=== PATIENT | female | born 1935 | race Caucasian/White ===

== ENCOUNTER 2017-05-22 18:40 | Emergency (ER) | payer MEDICARE, OTHER ==
--- NOTE | 2017-05-22 19:47 | CT REPORT ---
HISTORY: Injury. COMPARISON: None. TECHNIQUE: Unenhanced axial CT of the head. Dose reduction technique was utilized. 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 The london-white differentiation appears preserved with no evidence of acute infarct. There i s no evidence of acute cranial hemorrhage. There is no mass lesion or midline shift. The bony calvar ia appears intact. The visualized orbits appear unremarkable. The visualized paranasal sinuses and mastoid air cells appear clear. There is moderate atherosclerosis involving the cavernous internal ca rotid and mild atherosclerosis involving the distal vertebral arteries. IMPRESSION: 1. No acute intracranial abnormality. 2. Mild age-related atrophy. Final Electronic Signature: This report was electronically signed by Leodan Rawls MD on 05/22/2017 7 :45 PM. aliya /
--- NOTE | 2017-05-22 20:04 | RADIOLOGY REPORT ---
HISTORY: Injury. COMPARISON: None. TECHNIQUE: Three views left hand. FINDINGS: There is no evidence of acute fracture or dislocation. There is mild osteoarthritis involving the in terphalangeal joints. There is mild degenerative arthritis involving the first carpal metacarpal join t and between the distal scaphoid and trapezium and trapezoid. There is a normal variant ulna positiv e. There is diffuse osteopenia. The soft tissues appear unremarkable. IMPRESSION: 1. No fracture or dislocation. 2. Mild osteoarthritis interphalangeal joints. 3. Mild degenerative arthritis first carpal metacarpal joint and between the distal scaphoid and tra pezium and trapezoid. 4. Osteopenia. Final Electronic Signature: This report was electronically signed by Leodan Rawls MD on 05/22/2017 8 :02 PM. aliya /
--- NOTE | 2017-05-22 20:09 | RADIOLOGY REPORT ---
HISTORY: Injury. COMPARISON: None. TECHNIQUE: AP, lateral, and oblique views left knee. FINDINGS: There is no evidence of fracture. The joint spaces are preserved. There are tiny spurs along the supe rior and inferior poles of the patella. There is mild osteopenia. There is mild soft tissue swelling anterior to the knee. There is no significant suprapatellar effusion.. IMPRESSION: 1. No acute fracture. 2. Mild soft tissue swelling anterior to the knee. Final Electronic Signature: This report was electronically signed by Leodan Rawls MD on 05/22/2017 8 :07 PM. aliya /
--- NOTE | 2017-05-22 20:30 | ER NURSING DOCUMENTATION ---
Nurse's Notes [facility] Name:Katie Tse Age:81 yrs Sex:Female :1935 Arrival Date:05/22/2017 Time:18:40 Bed1 Private MD: Diagnosis:Knee Contusion;Finger Sprain;Head Injury;Facial Laceration Presentation: 05/22 18:48 Acuity: SHAN 3 tg 18:53 Presenting complaint: Patient states: mechanical fall forward, hitting bridge of nose, sj left cheek, left hand knuckles, left knee on pavement. Transition of care: Home. Notified ED Physician of patient's arrival and CC Dr. Benson notified. 18:53 Acuity: SHAN 4 sj 18:53 Method Of Arrival: Private Vehicle sj Triage Assessment: 19:00 General: Appears comfortable, Behavior is cooperative, pleasant. Pain: Complains of sj pain in left knee and bridge of nose. Neuro: Level of Consciousness is awake, alert, Oriented to person, place, time, event. Cardiovascular: Capillary refill < 3 seconds. Respiratory: Airway is patent Trachea midline Respiratory effort is even, unlabored, Respiratory pattern is regular, symmetrical. Musculoskeletal: Circulation, motion, and sensation intact Capillary refill < 3 seconds Range of motion limited in left knee Swelling present in left knee and left hand 4th & 5th PIP joints. Injury Description: Laceration sustained to bridge of nose is clean, superficial, 0.5 to 2.5 cm long, not bleeding. Historical: - Allergies: Succinylcholine; - Home Meds: 1. Aspirin Oral 2. Lasix Oral 3. Janumet oral 4. Plavix Oral 5. Metoprolol Tartrate Oral 6. Crestor oral 7. Isosorbide Mononitrate Oral 8. losartan oral 9. Norvasc Oral 10. Lexapro Oral 11. Glimepiride Oral - PMHx: Diabetes - NIDDM; Hypertension; CAD; - PSHx: pancreatic cyst removal; right ankle surgery x2; D & C; - Tetanus: < 10 years. - Ebola Screening: : Patient negative for fever greater than or equal to 101.5 degrees Fahrenheit, and additional compatible Ebola Virus Disease symptoms. Patient denies exposure to infectious person. Patient denies travel to an Ebola-affected area in the 21 days before illness onset. No symptoms or risks identified at this time. . - Immunization history: Pneumococcal vaccine is up to date, Flu Vaccine < 1 year. - Social history: Smoking status: Patient states was never smoker of tobacco. Patient uses alcohol on a daily basis. Patient/guardian denies using marijuana. Screenin:07 Infectious Disease Risk None. Abuse screen: Denies threats or abuse. Denies injuries sj from another. Nutritional screening: No deficits noted. Assessment: 19:07 See Triage Assessment done by same RN. Vital Signs: 18:49 BP 135 / 57 LA Sitting (auto/reg); Pulse 67 LA; Resp 16 S; Temp 98.6(TE); Pulse Ox 93% em3 on R/A; Weight 82.55 kg (R); Height 5 ft. 1 in. (154.94 cm) (R); Pain 5/10; 18:49 Body Mass Index 34.39 (82.55 kg, 154.94 cm) em3 ED Course: 11:[address] devan 18:41 Patient arrived in ED. arc 18:48 Triage completed. tg 18:50 Valuables Remains with patient Patient has correct armband on for positive em3 identification. Bed in low position. Call light in reach. Side rails up X 1. Ice pack to injury. 18:53 Laila Malone is Primary Nurse. sj 18:56 Gil Benson MD is Attending Physician. tl1 19:40 Valuables One gold colored ring with a clear colored stone was removed for CT. Ring em3 given to daughter per patient's request.. 19:49 Patient moved back from [address]. devan Administered Medications: 20:29 Drug: Tylenol 975 mg; Route: PO; sj 20:29 Follow up: Response: Medication administered at discharge. Outcome: 20:04 Discharge ordered by . tl1 20:28 Discharged to home ambulatory, with family. sj 20:28 Condition: stable 20:28 Instructed on discharge instructions, follow up and referral plans. Demonstrated understanding of instructions. 20:29 Patient left the ED. sj 05/23 11:04 Discharge F/U Call: Unable to reach: left voicemail: miguel Signatures: Satish Asif RN RN tg Coleman, Linda, RN RN lc Abbott, Laura lea Meiklejohn, Eric em3 Gil Benson MD MD tl1 Patria Ramirez, Reg Reg arc Laila Malone
--- NOTE | 2017-05-22 20:30 | ER PHYSICIAN DOCUMENTATION ---
Physician Documentation [facility] Name:Katie Tse Age:81 yrs Sex:Female :1935 Arrival Date:05/22/2017 Time:18:40 Bed1 Private MD: Gil Jimenez Disposition: 05/23 03:15 Chart complete. tl1 Disposition: 05/22/17 20:04 Discharged to Home/Self Care. Impression: Knee Contusion, Finger Sprain, Head Injury, Facial Laceration. - Condition is Good. - Discharge Instructions: CONTUSION, Soft Tissue, HEAD INJURY, No Wake-Up (Adult), LACERATION, Face (Dermabond), SPRAIN FINGER. - Medical Reconciliation form form. - Follow up: Private Physician; When: 4- 6 days; Reason: Recheck today's complaints, Continuance of care. - Problem is new. - Symptoms have improved. HPI: 05/22 18:56 This 81 yrs old Female presents to ER via Private Vehicle with complaints of tl1 Knee Injury. 19:00 The patient presents with a contusion. The complaints affect the left knee. Context: tl1 The problem was sustained outdoors, resulted from the patient falling, while walking, the patient can fully bear weight, the patient is able to ambulate, with mild difficulty. Onset: The symptom(s)/episode began/occurred suddenly, just prior to arrival, 1 hour(s) ago. Modifying factors: The symptoms are alleviated by the symptoms are aggravated by weight bearing, bending knee. She stumbled when her Birkenstocks caught a lip of pavement, causing her to fall forward. She did hit her head (no LOC) , and sustained a superficial laceration to the left bridge of her nose, with brief epistaxis. Historical: - Allergies: Succinylcholine; - Home Meds: 1. Aspirin Oral 2. Lasix Oral 3. Janumet oral 4. Plavix Oral 5. Metoprolol Tartrate Oral 6. Crestor oral 7. Isosorbide Mononitrate Oral 8. losartan oral 9. Norvasc Oral 10. Lexapro Oral 11. Glimepiride Oral - PMHx: Diabetes - NIDDM; Hypertension; CAD; - PSHx: pancreatic cyst removal; right ankle surgery x2; D & C; - Tetanus: < 10 years. - Ebola Screening: : Patient negative for fever greater than or equal to 101.5 degrees Fahrenheit, and additional compatible Ebola Virus Disease symptoms. Patient denies exposure to infectious person. Patient denies travel to an Ebola-affected area in the 21 days before illness onset. No symptoms or risks identified at this time. . - Immunization history: Pneumococcal vaccine is up to date, Flu Vaccine < 1 year. - Social history: Smoking status: Patient states was never smoker of tobacco. Patient uses alcohol on a daily basis. Patient/guardian denies using marijuana. ROS: 19:00 MS/extremity: Positive for injury or acute deformity. tl1 19:00 All other systems are negative. Exam: 19:00 Constitutional: This is a well developed, well nourished patient who is awake, alert, tl1 and in no acute distress. 19:00 Head/face: Noted is superficial scratch from eyeglasses to left superior/lateral nose, 1 cm. MIld swelling to left bridge of nose. . 19:00 Eyes: Periorbital structures: appear normal, Pupils: equal, round, and reactive to light and accomodation, Extraocular movements: intact throughout. 19:00 ENT: External ear(s): are unremarkable, Mouth: is normal, Oral mucosa: pink and intact, moist, Posterior pharynx: is normal. 19:00 Neck: External neck: is normal, C-spine: appears grossly normal, vertebral tenderness, is not appreciated, ROM/movement: is normal, Lymph nodes: no appreciated lymphadenopathy. 19:00 Chest/axilla: Palpation: crepitus, is not appreciated, tenderness, is not appreciated. 19:00 Cardiovascular: Rate: normal, Rhythm: regular, Heart sounds: normal. 19:00 Respiratory: the patient does not display signs of respiratory distress, Respirations: normal, Breath sounds: are normal. 19:00 Abdomen/GI: Palpation: abdomen is soft and non-tender. 19:00 Back: CVA tenderness, is absent, vertebral tenderness, is not appreciated. 19:00 Musculoskeletal/extremity: Extremities: grossly normal except: noted in the dorsal aspect of middle phalanx of left ring finger: contusion, ecchymosis, pain, swelling, tenderness, noted in the left knee: ecchymosis, swelling, tenderness. 19:00 Skin: Exam negative for acute changes. 19:00 Neuro: Exam negative for acute changes. Vital Signs: 18:49 BP 135 / 57 LA Sitting (auto/reg); Pulse 67 LA; Resp 16 S; Temp 98.6(TE); Pulse Ox 93% em3 on R/A; Weight 82.55 kg (R); Height 5 ft. 1 in. (154.94 cm) (R); Pain 5/10; 18:49 Body Mass Index 34.39 (82.55 kg, 154.94 cm) em3 MDM: 18:56 Patient medically screened. tl1 20:00 Data reviewed: vital signs, nurses notes, radiologic studies, CT scan, plain films, and tl1 as a result, I will discharge patient. Test interpretation: by ED physician or midlevel provider: plain radiologic studies. Counseling: I had a detailed discussion with the patient and/or guardian regarding: the historical points, exam findings, and any diagnostic results supporting the discharge/admit diagnosis, radiology results, the need for outpatient follow up, to return to the emergency department if symptoms worsen or persist or if there are any questions or concerns that arise at home. Response to treatment: the patient's symptoms have mildly improved after treatment, and as a result, I will discharge patient. ED course: Stable, with a minimal h/a. She was ambulatory with only a slight limp, pretty stable on her feet.. 05/22 19:48 Order name: CAT SCAN; HEAD W/O CON [id number]; Complete Time: 03:15 EDMS 05/23 03:15 Interpretation: NAD. SEE NOTE. Mild age related atrophy. tl1 05/22 20:06 Order name: HAND; [address] [place] [id number]; Complete Time: 03:15 EDMS 05/22 20:10 Order name: KNEE; [address] [place] [id number]; Complete Time: 03:15 EDMS Dispensed Medications: 20:29 Drug: Tylenol 975 mg; Route: PO; 20:29 Follow up: Response: Medication administered at discharge. Signatures: Gil Benson MD MD tl1 Laila Malone
[2017-05-22] MEDS ORDERED: ACETAMINOPHEN 325 MG TABLET PO ONE (20:41)
== END 2017-05-22 20:30 | disposition home or self-care (01) ==
LOC: ER 18:40
DX: S80.02XA Contusion of left knee, initial encounter (principal); S01.21XA Laceration without foreign body of nose, initial encounter; S63.635A Sprain of interphalangeal joint of left ring finger, initial encounter; W01.0XXA Fall on same level from slipping, tripping and stumbling without subsequent striking against object, initial encounter; Y92.480 Sidewalk as the place of occurrence of the external cause; Y93.01 Activity, walking, marching and hiking; I10 Essential (primary) hypertension; E11.9 Type 2 diabetes mellitus without complications; I25.10 Atherosclerotic heart disease of native coronary artery without angina pectoris; Z79.899 Other long term (current) drug therapy; Z79.02 Long term (current) use of antithrombotics/antiplatelets; Z79.82 Long term (current) use of aspirin
CPT/HCPCS: 70450; 99283; 99284